=== PATIENT | female | born 1975 | race Caucasian/White ===

== ENCOUNTER 2017-01-11 15:57 | Emergency (ER) | payer OTHER ==
--- NOTE | ~2017-01-11 | CT71 ---
[facility] A Service of [facility] RADIOLOGY TEXT RESULTS PATIENT: RUSSELL LEMUS LOCATION: [facility] : [birth year] UNIT #: [id number] AGE: [address]: Anirudh Culver MD SEX: F ORDER DR: [id number] [id number] [facility]. [place], [place] [address] [id number] E MR#: [id number] Acc #: [id number] NAME: RUSSELL LEMUS : 1975 SEX: F STUDY DATE/TIME: 01/11/2017 16:31 UNIT: [facility] ROOM: STUDY DESCRIPTION: CT Head Wo Contrast Attending Physician: Anirudh Culver M.D. Referring Physician: Sergio Romero M.D. Ordering Physician: Anirudh Culver M.D. Primary Care Physician: No Primary Care Physician MEDICAL IMAGING REPORT This report is preliminary unless electronic signature is present EXAM Noncontrast CT head. DATE OF EXAM 01/11/2017 HISTORY 41-year-old female with complaints of memory loss upon awakening this morning. COMPARISON Noncontrast CT head, 03/16/2016. TECHNIQUE NOTE: This CT exam was performed with one or more of the following radiation dose reduction techniques: automatic exposure control, adjustment of mA and/or kV according to patient size, and iterative reconstruction. FINDINGS No acute intracranial hemorrhage, mass lesion, mass effect or midline shift. No CT evidence of acute or evolving infarct. Ventricular configuration is normal. Major paranasal sinuses and mastoid air cells appear clear. IMPRESSION Normal noncontrast CT head. Dictated by... Mis Wilson M.D. THIS IS AN ELECTRONICALLY VERIFIED REPORT [facility] A Service [facility] RADIOLOGY TEXT RESULTS PATIENT: RUSSELL LEMUS LOCATION: [facility] : 79 UNIT #: [id number] AGE: [address]: Anirudh Culver MD SEX: F ORDER DR: Mis Wilson M.D. at 01/12/2017 10:07 PM HERON/dinah TD: 01/12/2017 00:19 JOB #: [id number] MEDICAL IMAGING REPORT COPY
--- NOTE | ~2017-01-11 | CR72 ---
[facility] A Service of [facility] RADIOLOGY TEXT RESULTS PATIENT: RUSSELL LEMUS LOCATION: [facility] : 79 UNIT #: [id number] AGE: [address]: Anirudh Culver MD SEX: F ORDER DR: [id number] [facility] [address] [facility]. [place], [place] [address] [id number] E MR#: [id number] Acc #: [id number] NAME: RUSSELL LEMUS : 1975 SEX: F STUDY DATE/TIME: 01/11/2017 16:32 UNIT: [facility] ROOM: STUDY DESCRIPTION: CR Chest Single View Portable Attending Physician: Anirudh Culver M.D. Ordering Physician: Ed Burt Cordoba M.D. Primary Care Physician: Primary Care Physician No MEDICAL IMAGING REPORT This report is preliminary unless electronic signature is present EXAM Portable chest HISTORY Acute mental status decline today. Chest pressure today. No injury. FINDINGS A single AP portable view of the chest shows both lungs to be clear. The heart is normal in size. The mediastinal contour is normal. No significant bone abnormalities are seen. IMPRESSION Normal portable chest. Dictated by... Joshua Levi M.D. THIS IS AN ELECTRONICALLY VERIFIED REPORT Joshua Levi M.D. at 01/12/2017 11:24 PM DFL/psc TD: 01/12/2017 00:59 JOB #: [id number] MEDICAL IMAGING REPORT COPY
--- NOTE | ~2017-01-11 | EKG ---
PATIENT: RUSSELL LEMUS UNIT #: [id number] Ventricular Rate: 87 BPM Atrial Rate: 87 BPM P-R Interval: 140 ms QRS Duration: 74 ms Q-T Interval: 344 ms QTC Calculation(Bezet): 413 ms P Bowen: 74 degrees Calculated R Bowen: 61 degrees Calculated T Bowen: 58 degrees Diagnosis Line: Normal sinus rhythm Diagnosis Line: Normal ECG Diagnosis Line: When compared with ECG of 25-MAR-2016 19:35, Diagnosis Line: No significant change was found Diagnosis Line: Confirmed by SEB REINA MD ([id number]) on 01/11/2017 Diagnosis Line: 5:49:05 PM INTERPRETING MD: LATOSHA ZHANG
[~2017-01-11 15:57] MED LIST: ALPRAZOLAM; DICLOFENAC PO; DOXYCYCLINE PO; EC-NAPROSYN500 MG PO; FIORICET 50-321 EACH PO; FLEXERIL PO; FLEXERIL10 MG PO; IBUPROFEN PO; IBUPROFEN800 MG; KEFLEX; KETOPROFEN PO; LEXAPRO; LORTAB 7.5-5001 TAB PO; MEDROL PO; MEDROL4 MG/DOSE- PO; NO MEDICATIONS; NORCO1 TAB 10/3 PO; NORFLEX100 M1 PO; PEN-VEE K PO; PERCOCET5/325; PHENERGAN W/CO120 ML PO; ULTRAM PO; VICODIN 5/500 T1 TAB PO; VOLTAREN75 MG PO; ZITHROMAX PO
[2017-01-11 16:16] LABS: URINE SOURCE CLEAN CATCH
[2017-01-11 16:55] LABS: URINE APPEARANCE CLOUDY; URINE BILIRUBIN NEG (NEG); URINE BLOOD NEG (NEG); URINE COLOR YELLOW; URINE GLUCOSE NEG (NEG); URINE KETONE NEG (NEG); URINE LEUKOCYTE ESTERASE NEG (NEG); URINE NITRATE NEG (NEG); URINE PROTEIN NEG (NEG); URINE UROBILINOGEN 0.2 MG/DL (NEG)
[2017-01-11 16:57] LABS: BASOPHIL% 0.6 % (0-2.5); EOSINOPHIL# 0.1 X10e3 (0-0.7); EOSINOPHIL% 1.4 % (0.0-7.0); HEMATOCRIT 42.5 % (35.0-45.0); HEMOGLOBIN 14.2 gm/dL (12.0-16.0); LYMPHOCYTE# 3.5 X10e3 (1.0-3.5); LYMPHOCYTE% 40.7 % (17.0-45.0); MEAN CELL VOLUME 92.3 FL (83-96); MEAN CORPUSCULAR HEMOGLOBIN 30.8 PG (28-34); MEAN CORPUSCULAR HGB CONC 33.4 g/dL (30-36); MEAN PLATELET VOLUME 8.6 FL (6.5-11.5); MONOCYTE# 0.7 X10e3 (0-1.0); MONOCYTE% 8.1 % (3.0-12.0); NEUTROPHIL# 4.2 X10e3 (1.5-7.1); NEUTROPHIL% 49.2 % (40-75); PLATELET COUNT 260 X10e3 (140-420); RED BLOOD COUNT 4.61 X10e (3.90-5.30); RED CELL DISTRIBUTION WIDTH 13.6 % (11.0-15.5); WHITE BLOOD COUNT 8.6 X10e3 (4.0-10.5)
[2017-01-11 16:58] LABS: DIFF IND NO
[2017-01-11 17:00] LABS: CULTURE INDICATED? NO
[2017-01-11 17:13] LABS: AMPHETAMINE POS (NEG); BARBITURATES NEG (NEG); BENZODIAZEPINES POS (NEG); COCAINE NEG (NEG); MARIJUANA POS (NEG); OPIATES NEG (NEG); TRICYCLIC ANTIDEPRESSANTS NEG (NEG); U METHADONE NEG (NEG)
[2017-01-11 17:18] LABS: ALBUMIN SERUM 4.1 g/dL (3.5-5.0); ALCOHOL BLOOD 5 mg/dL (0); ALKALINE PHOSPHATASE 50 U/L (32-92); ALT (SGPT) 16 U/L (10-40); AST (SGOT) 18 U/L (10-42); BILIRUBIN, DIRECT 0.1 mg/dL (0.0-0.2); BILIRUBIN,INDIRECT 0.2 mg/dL (0.0-0.9); BILIRUBIN,TOTAL 0.3 mg/dL (0.2-2.0); BLOOD UREA NITROGEN 7 mg/dL (9-23); CALCIUM SERUM 8.9 mg/dL (8.4-10.2); CARBON DIOXIDE 25 mmol/L (22-31); CHLORIDE 106 mmol/L (100-111); CREATININE SERUM 0.4 mg/dL (0.6-1.4); GLOM FILT RATE Estimated ABOVE60 mL/min (>60); GLUCOSE FASTING 79 mg/dL (70-110); PROTEIN TOTAL SERUM 7.1 g/dL (6.0-8.3); SALICYLATE <4.0 mg/dL; SODIUM 138 mmol/L (135-145)
[2017-01-11 17:20] LABS: ACETAMINOPHEN <10 ug/mL
== END 2017-01-11 19:03 | disposition home or self-care (01) ==
LOC: CED 15:57
PROVIDERS: Emergency Medicine
DX: R41.82 Altered mental status, unspecified (principal); F19.10 Other psychoactive substance abuse, uncomplicated; F41.9 Anxiety disorder, unspecified; F17.210 Nicotine dependence, cigarettes, uncomplicated; Z90.710 Acquired absence of both cervix and uterus; Z98.51 Tubal ligation status
CPT/HCPCS: 36415; 70450; 71010; 80048; 80076; 80307; 81003; 82947; 85025; 93005; 99284; G0480

== ENCOUNTER 2017-07-13 13:54 | Emergency (ER) | payer SELFPAY ==
--- NOTE | ~2017-07-13 | CR169 ---
[facility] A Service of [facility] RADIOLOGY TEXT RESULTS PATIENT: RUSSELL LEMUS LOCATION: [facility] : 79 UNIT #: [id number] AGE: [address]: Juliana Wing APRN SEX: F ORDER DR: [id number] [address] [address] [id number] E MR#: [id number] Acc #: [id number] NAME: RUSSELL LEMUS : 1975 SEX: F STUDY DATE/TIME: 07/13/2017 14:53 UNIT: SED ROOM: STUDY DESCRIPTION: CR Knee 2 Views Lt Attending Physician: Juliana Wing A.P.R.N. Ordering Physician: Juliana Wing A.P.R.N. Primary Care Physician: No Primary Care Physician MEDICAL IMAGING REPORT This report is preliminary unless electronic signature is present. EXAMINATION Two views, left knee. DATE 07/13/2017 HISTORY Left knee pain after falling at home yesterday. FINDINGS A nonspecific 7 mm circumscribed lucent lesion is demonstrated within the distal left femoral diametaphysis at its lateral margin. No fracture. No dislocation. No significant osteoarthritic change. No joint effusion. IMPRESSION 1. No acute left knee findings. 2. 7 mm lucent lesion in the distal left femoral diametaphysis laterally. Both benign and malignant etiologies are in the differential. Bone scan may prove helpful for further evaluation. Dictated by... Mis Wilson M.D. THIS IS AN ELECTRONICALLY VERIFIED REPORT Mis Wilson M.D. at 07/14/2017 1:11 PM HERON/dinah TD: 07/13/2017 21:31 JOB #: [id number] [facility] A Service of [facility] RADIOLOGY TEXT RESULTS PATIENT: RUSSELL LEMUS LOCATION: [facility] : 79 UNIT #: [id number] AGE: [address]: Juliana Wing APRN SEX: F ORDER DR: MEDICAL IMAGING REPORT Page 1 of 1
--- NOTE | ~2017-07-13 | CR93 ---
[facility] A Service [facility] RADIOLOGY TEXT RESULTS PATIENT: RUSSELL LEMUS LOCATION: [facility] : 79 UNIT #: [id number] AGE: [address]: Juliana Wing APRN SEX: F ORDER DR: [id number] [place] [address] [id number] E MR#: [id number] Acc #: [id number] NAME: RUSSELL LEMUS : 1975 SEX: F STUDY DATE/TIME: 07/13/2017 14:53 UNIT: SED ROOM: STUDY DESCRIPTION: CR Elbow Min 3 Views Lt Attending Physician: Juliana Wing A.P.R.N. Ordering Physician: Juliana Wing A.P.R.N. Primary Care Physician: No Primary Care Physician MEDICAL IMAGING REPORT This report is preliminary unless electronic signature is present. EXAMINATION Three views left elbow. DATE 07/13/2017 HISTORY Left elbow pain, distal humeral pain, bruising. Fell at home yesterday. COMPARISON None. FINDINGS AP and lateral examination of the elbow shows satisfactory articulation of the humerus with the proximal radius and ulna. There is no identifiable fracture, dislocation, joint effusion, or radiopaque foreign body in the soft tissues. IMPRESSION Normal left elbow. Dictated by... Mis Wilson M.D. THIS IS AN ELECTRONICALLY VERIFIED REPORT Mis Wilson M.D. at 07/14/2017 1:11 PM HERON/dinah TD: 07/13/2017 21:21 JOB #: [id number] MEDICAL IMAGING REPORT [facility] A [facility] RADIOLOGY TEXT RESULTS PATIENT: RUSSELL LEMUS LOCATION: [facility] : 79 UNIT #: [id number] AGE: [address]: Juliana Wing APRN SEX: F ORDER DR: Page 1 of 1
--- NOTE | ~2017-07-13 | CR156 ---
[facility]. [facility] A Service of [facility] RADIOLOGY TEXT RESULTS PATIENT: RUSSELL LEMUS LOCATION: [facility] : [birth year] UNIT #: [id number] AGE: [address]: Juliana Wing APRN SEX: F ORDER DR: [id number] [address] [address] [id number] E MR#: [id number] Acc #: [id number] NAME: RUSSELL LEMUS : 1975 SEX: F STUDY DATE/TIME: 07/13/2017 14:53 UNIT: SED ROOM: STUDY DESCRIPTION: CR Humerus Min 2 View Lt Attending Physician: Juliana Wing A.P.R.N. Ordering Physician: Juliana Wing A.P.R.N. Primary Care Physician: No Primary Care Physician MEDICAL IMAGING REPORT This report is preliminary unless electronic signature is present. EXAM Two views left humerus. DATE 07/13/2017 HISTORY Fell at home yesterday with left elbow and humerus pain. FINDINGS There is no evidence of fracture, dislocation, or radiopaque foreign body. No focal bone lesions are seen. IMPRESSION Normal 2 views of left humerus. Dictated by... Mis Wilson M.D. THIS IS AN ELECTRONICALLY VERIFIED REPORT Mis Wilson M.D. at 07/14/2017 1:11 PM HERON/dinah TD: 07/13/2017 21:33 JOB #: [id number] MEDICAL IMAGING REPORT Page 1 of 1
== END 2017-07-13 16:45 | disposition home or self-care (01) ==
LOC: SED 13:54
DX: S80.02XA Contusion of left knee, initial encounter (principal); S50.02XA Contusion of left elbow, initial encounter; F41.0 Panic disorder [episodic paroxysmal anxiety]; Z23 Encounter for immunization; W01.0XXA Fall on same level from slipping, tripping and stumbling without subsequent striking against object, initial encounter; Y92.009 Unspecified place in unspecified non-institutional (private) residence as the place of occurrence of the external cause
CPT/HCPCS: 29260; 73060; 73080; 73560; 90471; 90715; 99283